=== PATIENT | female | born 1945 | race Caucasian/White ===

== ENCOUNTER → 2020-09-07 11:21 | Outpatient (CLI) | payer MEDICARE, OTHER, SELFPAY ==
--- NOTE | ~2020-09-07 | MM_ITS ---
EXAMINATION: MM screening dieudonne BI w thania HISTORY: Screening mammogram TECHNIQUE: Craniocaudal and mediolateral oblique 3-D tomosynthesis images were obtained and synthetic 2-D images were generated. CAD analysis was submitted and interpreted. COMPARISON: No prior mammogram is available for comparison at this institution. BREAST PARENCHYMAL COMPOSITION: There are scattered areas of fibroglandular density. FINDINGS: There is no evidence of suspicious mass, calcification, or architectural distortion to sugg est malignancy in either breast. There has been no suspicious interval change. IMPRESSION: 1. No mammographic evidence of malignancy. 2. Recommend routine screening mammography in one year. BI-RADS Category 1: Negative Reviewed, dictated and finalized at location A.
== END ==
DX: Z12.31 Encounter for screening mammogram for malignant neoplasm of breast (principal)
CPT/HCPCS: 77063; 77067

== ENCOUNTER → 2022-02-25 11:46 | Outpatient (CLI) | payer MEDICARE, OTHER, SELFPAY ==
--- NOTE | ~2022-02-25 | MM_ITS ---
EXAMINATION: MM screening dieudonne BI w thania HISTORY: Screening mammogram TECHNIQUE: Craniocaudal and mediolateral oblique 3-D tomosynthesis images were obtained and synthetic 2-D images were generated. CAD analysis was submitted and interpreted. COMPARISON: 09/07/2020 BREAST PARENCHYMAL COMPOSITION: There are scattered areas of fibroglandular density. FINDINGS: No suspicious mass, calcification, or architectural distortion are identified in either anita ast to suggest malignancy. There has been no suspicious interval change. IMPRESSION: 1. No mammographic evidence of malignancy. 2. Recommend routine screening mammography in one year. BI-RADS Category 1: Negative Reviewed, dictated and finalized at location A. 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
== END ==
DX: Z12.31 Encounter for screening mammogram for malignant neoplasm of breast (principal)
CPT/HCPCS: 77063; 77067

== ENCOUNTER 2022-08-18 13:38 | Outpatient (CLI) | payer MEDICARE, OTHER, SELFPAY ==
--- NOTE | ~2022-08-18 | XR_ITS ---
XR abdomen/kub 1V 08/18/2022 14:17 Indication: Essential hypertension Renal stone. Procedure: KUB Comparison: No prior studies for comparison. Findings: Bowel pattern is nonobstructive. Moderate colonic fecal loading. There is a large calcified gallstone in the right upper abdomen. There is calcification overlying the kidney, consistent with r enal stone. No acute osseous abnormality. There are pelvic phleboliths. Lung bases unremarkable. Impression: 1: Right nephrolithiasis. 2: Cholelithiasis. Reviewed, dictated and finalized at location B. Impression: 1: Right nephrolithiasis. 2: Cholelithiasis.
== END 2022-08-18 13:39 ==
LOC: MICIMG 13:44
PROVIDERS: PCP Internal Medicine Nephrology; Visit Provider Internal Medicine Nephrology
DX: N20.0 Calculus of kidney (principal); I12.9 Hypertensive chronic kidney disease with stage 1 through stage 4 chronic kidney disease, or unspecified chronic kidney disease; N18.2 Chronic kidney disease, stage 2 (mild); K80.20 Calculus of gallbladder without cholecystitis without obstruction
CPT/HCPCS: 74018

== ENCOUNTER 2023-01-08 14:14 | Emergency (ER) | payer MEDICARE, OTHER, SELFPAY ==
--- NOTE | ~2023-01-08 | CT_ITS ---
EXAMINATION: CT brain wo con DATE: 01/08/2023 15:05 INDICATION: Status post fall. Head injury. TECHNIQUE: Computed tomography (CT) of the head was performed without intravenous contrast. The dose- length product was 605.33 mGy-cm. Automated exposure control and iterative reconstruction technique w ere employed. COMPARISON: None FINDINGS: Generalized atrophy. There are scattered mild periventricular and subcortical white matter changes, most likely related to small vessel ischemic disease (microangiopathy). There is intracrania l atherosclerosis. There is a 5 mm partially calcified extra-axial mass on the left involving the int erhemispheric fissure anteriorly, most likely benign meningioma. No acute infarction, hemorrhage, mas s or mass effect. No ventriculomegaly or midline shift. Basilar cisterns are patent. Paranasal sinuse s are unremarkable. Small left mastoid effusion. No depressed skull fractures. IMPRESSION: 1. No acute intracranial abnormality. 2: Left frontal 5 mm partially calcified extra-axial mass along the interhemispheric fissure, most li tez benign meningioma. Reviewed, dictated and finalized at location A. IMPRESSION: 1. No acute intracranial abnormality. 2: Left frontal 5 mm partially calcified extra-axial mass along the interhemisp heric fissure, most likely benign meningioma.
--- NOTE | ~2023-01-08 | XR_ITS ---
EXAMINATION: XR humerus RT INDICATION: Right arm pain, initial encounter TECHNIQUE: Two views of the right humerus are obtained. COMPARISON: None available FINDINGS: There is an acute, traumatic, closed, comminuted fracture of the proximal humerus which nelson ears to involve the surgical neck. The greater tuberosity exists as a separate fracture fragment. The fracture fragment containing the shaft of the humerus appears to be proximally migrated and slightly overriding resulting in rotation of the humeral head. No additional fracture is identified. Alignmen t at the elbow appears normal. IMPRESSION: 1. Comminuted fracture of the proximal humerus as detailed above. Reviewed, dictated and finalized at location L.
--- NOTE | ~2023-01-08 | CT_ITS ---
EXAMINATION: CT facial & cervical spine wo DATE: 01/08/2023 15:06 INDICATION: Status post fall. Facial and neck pain. TECHNIQUE: Computed tomography (CT) of the maxillofacial region and cervical spine was performed with out intravenous contrast. The dose-length product was 407.28 mGy-cm. Automated exposure control and i terative reconstruction technique were employed. COMPARISON: None FINDINGS: MAXILLOFACIAL CT: There is mild mucosal thickening of the maxillary sinuses. There are symmetric degenerative changes o f the temporomandibular joints. Mandible intact. No underlying fracture. No significant nasal septal deviation. There is an age-indeterminate nondisplaced fracture of the lateral rim of the right orbit. CERVICAL SPINE CT: There is degenerative disc disease with disc narrowing and endplate degenerative change at all cervic al spine and upper thoracic spine levels. There is degenerative anterolisthesis at C7-T1, T1-2 and T2 -3. No evidence for perched facet. Odontoid process is normal. There is moderate multilevel uncinate and facet hypertrophy. Odontoid process is normal. Craniovertebral junction is normal. There is carot id atherosclerosis.. IMPRESSION: 1. Age-indeterminate nondisplaced fracture lateral margin of the right orbit. 2: No acute abnormality of the cervical spine. 3: Severe cervical spondylosis. Reviewed, dictated and finalized at location A.
--- NOTE | ~2023-01-08 | XR_ITS ---
EXAMINATION: XR shoulder RT min 2V INDICATION: Right shoulder pain, initial encounter TECHNIQUE: Two views of the right shoulder are submitted. COMPARISON: None FINDINGS: There is an acute, traumatic, closed, comminuted fracture of the proximal humerus which nelson ears to involve the surgical neck. The greater tuberosity exists as a separate fracture fragment. The fracture fragment containing the shaft of the humerus appears to be proximally migrated and slightly overriding resulting in rotation of the humeral head. No additional fracture is identified. IMPRESSION: 1. Comminuted fracture of the proximal humerus as detailed above. Reviewed, dictated and finalized at location L.
[2023-01-08 14:38] VITALS: BP 186/77; PULSE 95; RESP 16; TEMP 36.2; O2SAT 98
[2023-01-08] MEDS: HYDROcodone/acetaminophen (*CRX) 5-325 MG TABLET 1 TAB PO (17:16)
[2023-01-08] MEDS: ACETAMINOPHEN 325 MG TABLET 650 MG PO (17:16)
[2023-01-08] MEDS: ONDANSETRON HCL ODT 4 MG TABLET PO (17:17)
--- NOTE | 2023-01-08 17:57 | ED.FALL ---
HPI - Fall General Chief Complaint: Fall Stated Complaint: fall, right arm injury Time Seen by Provider: 01/08/23 16:30 Source: patient and RN notes reviewed Mode of arrival: ambulatory Limitations: no limitations History of Present Illness HPI Narrative: This is a 77 year old right hand dominant female who presents for evaluation of right shoulder pain. Patient states she accidentally tripped over parking block, and she fell on to her right shoulder. She also reports hitting her nose but denies hitting head or LOC. She had some epistaxis that has resolved. She denies facial pain. She denies headache, dizziness, nausea or vomiting. She has right shoulder pain. Denies arm weakness, numbness or tingling. Related Data Home Medications Medication Instructions Recorded Confirmed amlodipine 10 mg tablet 10 mg PO DAILY 09/02/22 09/02/22 aspirin 81 mg tablet,delayed 81 mg PO DAILY 09/02/22 09/02/22 release atorvastatin 40 mg tablet (Lipitor) 40 mg PO DAILY 09/02/22 09/02/22 carvedilol 25 mg tablet 25 mg PO Q12H 09/02/22 09/02/22 dulaglutide 3 mg/0.5 mL 3 mg subcut WEEKLY 09/02/22 09/02/22 subcutaneous pen injector (Trulicity) lifitegrast 5 % eye drops in a 1 drp EACH EYE BID 09/02/22 09/02/22 dropperette (Xiidra) losartan 50 mg tablet 50 mg PO BID 09/02/22 09/02/22 metformin 1,000 mg tablet 1,000 mg PO BID 09/02/22 09/02/22 potassium citrate 10 mEq (1,080 2,160 mg PO BID 09/02/22 09/02/22 mg) tablet,extended release Allergies Allergy/AdvReac Type Severity Reaction Status Date / Time cephalexin Allergy Unknown Other Verified 01/08/23 15:10 hydrochlorothiazide Allergy Unknown Other Verified 01/08/23 15:10 Sulfa (Sulfonamide Allergy Unknown Other Verified 01/08/23 15:10 Antibiotics) Review of Systems Review of Systems: All systems reviewed & are unremarkable except as noted in HPI and below PMFSH Past Medical History Medical History (Updated 01/11/23 @ 07:26 by Gissell Hassan MD) Calculus of kidney Diabetes mellitus Hypertension Surgical History Surgical History (Updated 01/11/23 @ 07:27 by Gissell Hassan MD) H/O tubal ligation Hx of tonsillectomy Social History Social History (Updated 09/02/22 @ 11:43 by Nicky Cook MA) Smoking status: Former smoker Alcohol intake: unknown Substance use: unknown Substance use type: unknown Lack of Transportation: No Lack of Food: Never True Current Housing: I Have Housing Concerned About Future Housing: No Difficulty Paying Gas/Electric Bills: No Difficulty Paying for Meds: No Currently Unemployed: No Education: High School Diploma/GED Difficulty w/ Childcare or Family Care: No Living arrangements: with family Gender identity (if verbalized by the patient): Female Exam Const: General: no acute distress and alert Nutritional Appearance: well nourished Orientation/consciousness: patient oriented x3 Limitations: no limitations HENMT: Head: normal to inspection Ears: external ears normal Mouth: Yes Normal oral and palatal mucosa present, Yes lip normal and Yes moist mucous membranes Teeth and gingiva: dentition normal Throat: posterior oropharynx normal and uvula midline Other: no loose teeth, no orbital swelling or tenderness, there is dried blood to nostrils Eyes: Conjunctivae: conjunctivae normal Pupils: Equal, round and reactive pupils present EOM: EOMs intact bilaterally Neck: Neck: normal visual inspection and no lymphadenopathy Chest: Chest palpation & inspection: normal inspection of the chest Resp: Effort & Inspection: normal respiratory effort Auscultation: clear to auscultation bilaterally Cardio: Rate: regular rate Rhythm: regular rhythm Heart sounds: no murmurs GI: GI Palp: Yes Soft to palpation, No Tenderness to palpation present (GI) and No Guarding due to palpation present (GI) Auscultation: normal bowel sounds Skin: General skin exam: normal color Rashes: no rashes
== END 2023-01-08 18:29 | disposition home or self-care (01) ==
PROVIDERS: Emergency Provider General Practice
DX: S42.211A Unspecified displaced fracture of surgical neck of right humerus, initial encounter for closed fracture (principal); S42.251A Displaced fracture of greater tuberosity of right humerus, initial encounter for closed fracture; S42.301A Unspecified fracture of shaft of humerus, right arm, initial encounter for closed fracture; E11.9 Type 2 diabetes mellitus without complications; I10 Essential (primary) hypertension; Z87.442 Personal history of urinary calculi; Z87.891 Personal history of nicotine dependence; Z79.82 Long term (current) use of aspirin; Z79.85 Long-term (current) use of injectable non-insulin antidiabetic drugs; Z79.84 Long term (current) use of oral hypoglycemic drugs; M47.812 Spondylosis without myelopathy or radiculopathy, cervical region; G93.89 Other specified disorders of brain; W18.09XA Striking against other object with subsequent fall, initial encounter
CPT/HCPCS: 70450; 70486; 72125; 73030; 73060; 99284; A9270

== ENCOUNTER 2023-01-13 07:52 | Outpatient (CLI) | payer MEDICARE, OTHER, SELFPAY ==
--- NOTE | ~2023-01-13 | CT_ITS ---
EXAMINATION: CT shoulder RT wo con DATE: 01/13/2023 08:29 INDICATION: Unspecified fracture of shaft of right humerus. TECHNIQUE: Computed tomography (CT) of the right shoulder was performed without intravenous contrast. Automated exposure control and iterative reconstruction technique were employed. The dose-length pro duct was 479.73 mGy-cm. COMPARISON: Right shoulder radiographs 01/08/2023 FINDINGS: There is a comminuted fracture of proximal right humerus with displaced fracture component at the greater tuberosity and surgical neck. The main distal fracture fragment demonstrates impaction , anterior displacement, and varus angulation. There is mild osteoarthritis of glenohumeral joint and acromioclavicular joint. There is a right glenohumeral joint effusion. There is a 3.3 cm subcutaneou s mass posterior to the right scapula, likely a sebaceous cyst. IMPRESSION: 1. Comminuted three-part fracture of proximal right humerus. 2. Mild polyarticular osteoarthritis. Reviewed, dictated and finalized at location E.
== END 2023-01-13 07:53 | disposition home or self-care (01) ==
PROVIDERS: Visit Provider Orthopaedic Surgery
DX: S42.301A Unspecified fracture of shaft of humerus, right arm, initial encounter for closed fracture (principal); X58.XXXA Exposure to other specified factors, initial encounter; M19.011 Primary osteoarthritis, right shoulder
CPT/HCPCS: 73200

== ENCOUNTER 2023-04-25 13:04 | Outpatient (CLI) | payer MEDICARE, OTHER, SELFPAY ==
--- NOTE | ~2023-04-25 | XR_ITS ---
XR shoulder RT min 2V 04/25/2023 13:29 Indication: Right shoulder pain Procedure: 4 views right shoulder Comparison: Comparison to multiple prior studies sequentially, with oldest reviewed study dated 12/28. Findings: There is a healing right humeral neck fracture with developing sclerosis at the fracture si te. Mild varus angulation. Glenohumeral joint intact. Surrounding osseous structures unremarkable. Impression: 1: Stable alignment of healing right humeral neck fracture. Reviewed, dictated and finalized at location A. [employer] Impression: 1: Stable alignment of healing right humeral neck fracture.
== END 2023-04-25 13:05 | disposition home or self-care (01) ==
PROVIDERS: Visit Provider Orthopaedic Surgery
DX: S42.291D Other displaced fracture of upper end of right humerus, subsequent encounter for fracture with routine healing (principal); X58.XXXD Exposure to other specified factors, subsequent encounter
CPT/HCPCS: 73030

== ENCOUNTER 2023-09-01 12:53 | Outpatient (CLI) | payer MEDICARE, OTHER, SELFPAY ==
--- NOTE | ~2023-09-01 | XR_ITS ---
XR abdomen/kub 1V 09/01/2023 13:10 Indication: Proteinuria. Procedure: KUB Comparison: 08/18/2022 Findings: There is a right renal stone. There are oval radiodensities adjacent to L1 on the right, li tez bowel content. There is a rounded concentrically calcified gallstone in the right upper abdomen. Bowel gas pattern nonobstructive. Calcification overlying the right ilium may represent a appendicol ith. Moderate lumbar spondylosis. No acute osseous abnormality. Impression: 1: Right nephrolithiasis. 2: Cholelithiasis. Reviewed, dictated and finalized at location B. Impression: 1: Right nephrolithiasis. 2: Cholelithiasis.
== END 2023-09-01 12:54 ==
PROVIDERS: PCP Internal Medicine Nephrology; Visit Provider Internal Medicine Nephrology
DX: R80.1 Persistent proteinuria, unspecified (principal); N20.0 Calculus of kidney; K80.20 Calculus of gallbladder without cholecystitis without obstruction
CPT/HCPCS: 74018